=== PATIENT | male | born 1960 | race Caucasian/White ===

== ENCOUNTER → 2021-07-18 | Outpatient (CLI) | payer OTHER ==
[~2021-07-18] MED LIST: APIX5TAB PO; ATOR20TA66 PO; CARV6.252 PO; OMG1KC PO; TMSL.4C PO
== END ==
LOC: CARD 14:00
PROVIDERS: ATTEND Internal Medicine Cardiovascular Disease
DX: I51.7 Cardiomegaly (principal); I48.0 Paroxysmal atrial fibrillation; I34.0 Nonrheumatic mitral (valve) insufficiency
CPT/HCPCS: 93306

== ENCOUNTER 2021-07-19 13:00 | Day surgery (SDC) | payer OTHER ==
[~2021-07-19] VITALS: Ht 190.5 cm; Wt 103.6 kg
[2021-07-19] VITALS (9 sets, daily range): BP systolic 114–142; BP diastolic 79–100
[2021-07-19 11:57] LABS: HEMATOCRIT 41 % (40-54); MEAN CORPUSCULAR HEMOGLOBIN 32 pg (25-34); MEAN CORPUSCULAR HGB CONC 34 g/dL (32-36); MEAN CORPUSCULAR VOLUME 95 fL (80-99); MEAN PLATELET VOLUME 9.7 fL (9.0-12.2); PLATELET COUNT 298 10^3/uL (130-400); WHITE BLOOD COUNT 7.5 10^3/uL (4.3-11.0)
[2021-07-19 12:08] LABS: INR 1.1 (0.8-1.4); PROTHROMBIN TIME PATIENT 14.3 SEC (12.2-14.7)
[2021-07-19 12:14] LABS: ALBUMIN 4.1 GM/DL (3.2-4.5); BILIRUBIN,TOTAL 0.5 MG/DL (0.1-1.0); CALCIUM 9.6 MG/DL (8.5-10.1); CREATININE SERUM 0.9 MG/DL (0.60-1.30); POTASSIUM 4.6 MMOL/L (3.6-5.0); TOTAL PROTEIN 8.3 GM/DL (6.4-8.2)
[~2021-07-19 13:00] MED LIST changes: +LIDOCAINE 2% VISCOUS 15 ML UDC ONE; +LIDOCAINE 2% VISCOUS 15 ML UDC PO ONE; +MIDAZOLAM 2 MG/2 ML (VERSED) VIAL ONE; +NS IV 1000 ML 1,000 ML IV SCH; +NS IV 1000 ML 1,000 ML ONE; +proPOfol 200 MG/20 ML (DIPRIVAN) VIAL IV ONE
--- NOTE | 2021-07-19 20:30 | OPERATIVE REPORT ---
DATE OF SERVICE: 07/19/2021 EXTERNAL ELECTRICAL CARDIOVERSION REPORT INDICATIONS: The patient is a 61-year-old man with atrial fibrillation with rapid ventricular response. External electrical cardioversion was carried out today after having obtained an informed consent. We proceeded with transesophageal echocardiography first because he has not taken his Eliquis for more than 24 hours prior to this procedure. Transesophageal echocardiography did not indicate any intracardiac thrombus. Subsequently, we carried out external electrical cardioversion. DESCRIPTION OF PROCEDURE: We suspected atrial flutter. We started with 50 joules, which was delivered through external pads (synchronized shock). This did not change the rhythm. We then gave 150 joules, synchronized, biphasic shock through the external pads, which restored sinus rhythm. He tolerated the procedure well. Job ID: [id number] DocumentID: [id number] Dictated Date: 07/19/2021 13:24:14 Pmo Project Manager Date: 07/19/2021 20:29:39 Dictated By: ANGY WILCOX MD, MA, FACP, FACC,
== END 2021-07-19 13:22 | disposition home or self-care (01) ==
LOC: CATH 13:00
PROVIDERS: ATTEND Internal Medicine Cardiovascular Disease
DX: I48.20 Chronic atrial fibrillation, unspecified (principal); B19.20 Unspecified viral hepatitis C without hepatic coma; F10.10 Alcohol abuse, uncomplicated; F17.210 Nicotine dependence, cigarettes, uncomplicated; I10 Essential (primary) hypertension; Z79.01 Long term (current) use of anticoagulants; Z79.82 Long term (current) use of aspirin; Z79.899 Other long term (current) drug therapy
CPT/HCPCS: 36415; 80053; 80061; 85027; 85610; 85730; 87081; 92960; 93005; 93312

== ENCOUNTER → 2021-08-09 | Outpatient (CLI) | payer OTHER ==
[~2021-08-09] MED LIST changes: -LIDOCAINE 2% VISCOUS 15 ML UDC ONE; -LIDOCAINE 2% VISCOUS 15 ML UDC PO ONE; -MIDAZOLAM 2 MG/2 ML (VERSED) VIAL ONE; -NS IV 1000 ML 1,000 ML IV SCH; -NS IV 1000 ML 1,000 ML ONE; +REGADENOSON 0.4 MG/5 ML SYR (LEXISCAN) IV ONE; -proPOfol 200 MG/20 ML (DIPRIVAN) VIAL IV ONE
[2021-08-09] MEDS: CATHETER FLUSH 10 ML SYR IVP PRN ×2 (08:00→09:22)
[2021-08-09 09:22] VITALS: BP 153/79
--- NOTE | 2021-08-10 09:59 | STRESS TEST ---
DATE OF SERVICE: RESTING AND POST REGADENOSON TECHNETIUM-99M TETROFOSMIN SPECT CT IMAGING ORDERING PHYSICIAN: Dr. Rodriguez. CLINICAL DIAGNOSIS: Shortness of breath. Baseline images were carried out after injection of 11 mCi of technetium-99m Tetrofosmin. This was followed by 0.4 mg Regadenoson and 32.8 mCi of technetium-99m Tetrofosmin for stress imaging. The electrocardiogram showed sinus rhythm and did not change significantly with the regadenoson infusion. Review of images at rest and following stress indicates a small to moderate sized basal inferior perfusion defect that appears transient. Gated images show normal global left ventricular systolic function with normal regional wall motion. Left ventricular ejection fraction is calculated to be 52%. Left ventricular end-diastolic volume is 115 mL. CONCLUSIONS: 1. This study is suggestive of a small to moderate amount of basal inferior ischemia. 2. Normal regional wall motion. 3. Mild to moderate cardiomegaly. 4. Left ventricular ejection fraction 52%. Job ID: [id number] DocumentID: [id number] Dictated Date: 08/10/2021 08:33:40 Disintegrator Date: 08/10/2021 09:58:47 Dictated By: ANGY RODRIGUEZ MD, MA, FACP, FACC,
== END ==
LOC: CARD 08:30
PROVIDERS: ATTEND Internal Medicine Cardiovascular Disease
DX: I51.7 Cardiomegaly (principal)
CPT/HCPCS: 78452; 93017

== ENCOUNTER 2021-08-16 11:00 | Day surgery (SDC) | payer OTHER ==
[2021-08-16] VITALS (9 sets, daily range): BP systolic 116–139; BP diastolic 64–74
[~2021-08-16] VITALS: Ht 190.5 cm; Wt 105.8 kg
[2021-08-16 09:14] LABS: HEMATOCRIT 38 % (40-54); HEMOGLOBIN 12.5 g/dL (13.3-17.7); MEAN CORPUSCULAR HEMOGLOBIN 31 pg (25-34); MEAN CORPUSCULAR HGB CONC 33 g/dL (32-36); MEAN CORPUSCULAR VOLUME 96 fL (80-99); MEAN PLATELET VOLUME 9.8 fL (9.0-12.2); PLATELET COUNT 267 10^3/uL (130-400); WHITE BLOOD COUNT 6.1 10^3/uL (4.3-11.0)
[2021-08-16 09:33] LABS: ALBUMIN 4.1 GM/DL (3.2-4.5); BILIRUBIN,TOTAL 0.6 MG/DL (0.1-1.0); CALCIUM 9.2 MG/DL (8.5-10.1); CREATININE SERUM 0.82 MG/DL (0.60-1.30); POTASSIUM 4.1 MMOL/L (3.6-5.0); TOTAL PROTEIN 8.4 GM/DL (6.4-8.2)
[~2021-08-16 11:00] MED LIST changes: +ASPI-1238 PO; +ATOR40TA70 PO; +DILT180C84 PO; +HEParin (CATH LAB) 2,000 ML IV ONE; +LIDOCAINE 1% INJ 50 ML (XYLOCAINE) VIAL ONE; +NS IV 1000 ML 1,000 ML IV SCH; -REGADENOSON 0.4 MG/5 ML SYR (LEXISCAN) IV ONE
[2021-08-16] MEDS ORDERED: fentaNYL INJ 100 MCG/2 ML AMP ONE (12:45)
[2021-08-16] MEDS ORDERED: MIDAZOLAM 5 MG/5 ML (VERSED) VIAL ONE (12:45)
--- NOTE | 2021-08-16 13:41 | Cardiac Procedure Note-CS/ASA ---
Pre-Procedure Note Pre-Op Procedure Note H&P Reviewed The H&P was reviewed, patient examined and no changes noted. Date H&P Reviewed: Aug 16, 2021 Time H&P Reviewed: 12:00 Conscious Sedation Pre-Proced Time 12:00 ASA Score 3 For ASA 3 and 4: Consider anesthesia and medical clearance. Also, for patients with a history of failed moderate sedation consider anesthesia. Airway Lungs Heart ASA score ASA 1: a normal healthy patient ASA 2: a patient with a mild systemic disease (mid diabetes, controlled hypertension, obesity ASA 3: a patient with a severe systemic disease that limits activity (angina, COPD, prior Myocardial infarction) ASA 4: a patient with an incapacitating disease that is a constant threat to life (CHF, renal failure) ASA 5: a moribund patient not expected to survive 24 hrs. (ruptured aneurysm) ASA 6: a declared brain- patient whose organs are being harvested. For emergent operations, add the letter E after the classification Mallampati Classification Grade 2 Sedation Plan Analgesia, Amnesia, Plan communicated to team members, Discussed options with patient/fam, Discussed risks with patient/fam The patient is an appropriate candidate to undergo the planned procedure, sedation, and anesthesia. The patient immediately re-assessed prior to indication. ANGY WILCOX MD FACP FAC CCDS Aug 16, 2021 13:41
--- NOTE | 2021-08-16 13:43 | Discharge Inst-Post CATH ---
Discharge Inst-CATH/EP Post Cardiac Cath/EP D/C Inst Follow Up/Plan F/u with Dr Rodriguez in 2 weeks ACTIVITY * Go Home directly and rest. * Limit activity of the leg (or wrist if it was used) for 7 days including aerobics, swimming, jogging, bicycling, etc. * Restrict stair-climbing for 7 days if possible, if not, climb up with your no n-cath leg, then bring together on the same step. * Avoid lifting, pushing, pulling or excessive movement of the affected ext remity for 7 days. * Customary sexual activity may be resumed after 2 days-use caution not to use a position that strains or causes pain to the affected extremity. * No driving for 24 hours. * NO SMOKING. * Avoid straining for bowel movements for 7 days. * Gentle walking on level ground is allowed. * Returning to work will depend on the type of procedure and the results. Your doctor will discuss this with you. CALL YOUR DOCTOR FOR ANY OF THE FOLLOWING: *If bleeding from the puncture site occurs- Apply gentle pressure to site with clean cloth and call your doctor or EMS. * If a knot or lump forms under the skin, increases in size, or causes pain. * If bruising appears to be worsening or moving further down your leg instead of disappearing. * Temperature above 101 F. CARE OF YOUR GROIN INCISION; * Bruising or purple discoloration of the skin near the puncture site is common. * You may shower only, no bathtub bathing for 5 days. Be careful to avoid slipping as your leg may feel stiff. * If a closure device was used on your femoral artery, please see the attached guide regarding care of the device and your leg. * Leave dressing on FOR 24 hours. CARE OF YOUR WRIST INCISION; * Bruising or purple discoloration of the skin near the puncture site is common. * You may shower. * DO NOT submerge wrist. * Leave dressing on FOR 24 hours. ANGY RODRIGUEZ MD FACP FAC CCDS Aug 16, 2021 13:43
--- NOTE | 2021-08-16 13:44 | Discharge Inst-Cardiology ---
Discharge Inst-Cardiac Discharge Medications Continued Medications: Apixaban (Eliquis) 5 Mg Tablet 5 MG PO BID, TAB Aspirin (Aspirin EC) 81 Mg Tablet.dr 81 MG PO DAILY, TAB Atorvastatin Calcium (Atorvastatin Calcium) 40 Mg Tablet 20 MG PO SUNDAY, TAB TAKES (40MG) TABLET Carvedilol (Carvedilol) 6.25 Mg Tablet 3.125 MG PO BID, TAB TAKES (6.25MG) TABLET Diltiazem HCl (Diltiazem 24Hr Cd) 180 Mg Cap.er.24h 180 MG PO 1800, CAP Tamsulosin HCl (Flomax) 0.4 Mg Cap 0.4 MG PO DAILY, CAP ANGY WILCOX MD FACP FAC CCDS Aug 16, 2021 13:44
[2021-08-16] MEDS ORDERED: NS IV 1000 ML 1,000 ML IV SCH (13:45)
[2021-08-16] MEDS ORDERED: PATIENT MAY USE OWN MEDS, ALL PO SCH (13:45)
--- NOTE | 2021-08-16 14:50 | CARDIAC CATHETERIZATION ---
DATE OF SERVICE: 08/16/2021 CARDIAC CATHETERIZATION REPORT The patient is a 61-year-old gentleman who has been having progressive shortness of breath. Myocardial perfusion imaging indicated inferior ischemia. Cardiac catheterization was recommended. Informed consent was obtained. DESCRIPTION OF PROCEDURE: He was brought to the cardiac catheterization laboratory in a fasting state. Right groin was prepared and draped in the usual sterile fashion. Lidocaine 1% was used for local anesthesia. Modified Seldinger technique was used to advance a 5-Bulgarian sheath in the right femoral artery, 5-Bulgarian JL4 catheter was used for left coronary angiography, 5-Bulgarian JR4 catheter was used for right coronary angiography, 5-Bulgarian pigtail catheter was used for left heart catheterization and left ventricular angiography. Angiography of the right femoral artery was carried out through the sheath. Mynx was used to achieve hemostasis. He tolerated the procedure well. HEMODYNAMICS: Left ventricular end-diastolic pressure following coronary angiography was 12 mmHg. There is no significant pressure gradient on pullback across the aortic valve. Ascending aortic pressure was 125/65 with a mean of 90 mmHg. CORONARY ANGIOGRAPHY: Mild coronary calcification is seen. Left main coronary artery is free of significant disease. Left anterior descending and left circumflex artery is free of significant disease. Right coronary artery has 30% to 40% stenosis in the mid vessel. Right coronary artery is dominant. LEFT VENTRICULAR ANGIOGRAPHY: Left ventricular angiography was carried out in the right anterior oblique projection. Global left ventricular systolic function is normal. No regional wall motion abnormalities seen. Left ventricular ejection fraction approximately 60%. CONCLUSIONS: 1. Mild coronary artery disease. 2. Left ventricular end-diastolic pressure 12 mmHg. 3. Left ventricular ejection fraction approximately 60%. DISCUSSION AND RECOMMENDATIONS: Based on results of the study, myocardial perfusion imaging appears to have been false positive. Continuing risk factor modification is advised. Outpatient followup is advised. Job ID: [id number] DocumentID: [id number] Dictated Date: 08/16/2021 13:30:27 Front Desk Date: 08/16/2021 14:49:15 Dictated By: ANGY WILCOX MD, MA, FACP, FACC,
== END 2021-08-16 16:55 | disposition home or self-care (01) ==
LOC: CATH 11:00
PROVIDERS: ATTEND Internal Medicine Cardiovascular Disease
DX: I25.10 Atherosclerotic heart disease of native coronary artery without angina pectoris (principal); F17.210 Nicotine dependence, cigarettes, uncomplicated; I48.0 Paroxysmal atrial fibrillation; I48.92 Unspecified atrial flutter; I10 Essential (primary) hypertension; B19.20 Unspecified viral hepatitis C without hepatic coma; F10.10 Alcohol abuse, uncomplicated; Z79.01 Long term (current) use of anticoagulants; Z79.82 Long term (current) use of aspirin; Z79.899 Other long term (current) drug therapy
CPT/HCPCS: 36415; 80053; 80061; 85027; 85610; 85730; 87081; 93458